=== PATIENT | male | born 2000 | race Caucasian/White ===

== ENCOUNTER 2021-05-05 13:35 | Outpatient (REF) | payer OTHER, SELFPAY ==
--- NOTE | ~2021-05-05 | FL_ITS ---
PROCEDURE: FLUOROSCOPY-GUIDED RIGHT ARTHROGRAM FOR MRI CLINICAL INFORMATION: Pain right shoulder. [employer]. COMPARISON: None TECHNIQUE: Following explaining fluoroscopy-guided right hip arthrogram injection procedure, benefits and risk, a written consent was obtained. Patient was placed supine on fluoroscopy table and suitable site was selected along the anterior shoulder joint and the area was marked on the skin. The marked area was cleaned and draped in the usual sterile manner. 1% lidocaine was injected at the puncture site. A 22-gauge spinal needle was inserted along the inferior anterior shoulder joint and 2 mL of nonionic contrast was injected to confirm needle position in the joint space. Subsequently 4 mL of 1% lidocaine, 0.1 mL of gadolinium and 6 mL of saline was injected as a 10 mL cocktail and needle withdrawn. Complete hemostasis achieved at puncture site. Simple Band-Aid applied postprocedure. Patient tolerated procedure extremely well. FINDINGS: On preliminary x-ray imaging the glenohumeral joint space is maintained normal. There is contrast opacifying the glenohumeral joint space. There is a large infra-glenohumeral joint space bursa where contrast pooling was noted. No fracture or lytic process seen. FL/FL arthrogram shoulder RT IMPRESSION: Successful fluoroscopy-guided right shoulder arthrogram performed for MRI. Patient was sent to MRI department for further imaging. Fluoroscopy time: 2.3 minutes. Dose area product: 9.853 uGycm2. Images: 4.
[2021-05-05] MEDS: iohexoL 300 MG/ML 50 ML INFUS..BTL 10 ML INTRAARTIC (14:55)
== END 2021-05-05 13:36 | disposition home or self-care (01) ==
LOC: HO.XRAY 13:35
PROVIDERS: Visit Provider Family Medicine
DX: M25.511 Pain in right shoulder (principal)
CPT/HCPCS: 23350; 73040; 73222; A9585; Q9967